=== PATIENT | male | born 2000 | race Caucasian/White ===

== ENCOUNTER 2022-02-06 14:32 | Outpatient (REF) | payer MEDICAID, SELFPAY ==
--- NOTE | ~2022-02-06 | XR_ITS ---
EXAMINATION: XR HAND, RIGHT CLINICAL INFORMATION: Right wrist and hand pain. COMPARISON: None TECHNIQUE: 4 views. of the right hand. FINDINGS: Old healed fracture of the fourth metacarpal with residual deformity. No acute abnormality. No acute fracture. No dislocation. Joint spaces are normal. No focal bone lesion or abnormal periosteal reaction. No soft tissue abnormality. XR/XR hand RT min 3V IMPRESSION: Normal right hand..
== END 2022-02-06 14:33 | disposition home or self-care (01) ==
LOC: HO.XRAY 14:32
PROVIDERS: PCP General Practice; Visit Provider General Practice
DX: S62.91XS Unspecified fracture of right hand, sequela (principal); X58.XXXS Exposure to other specified factors, sequela
CPT/HCPCS: 73130

== ENCOUNTER 2022-07-02 15:02 | Emergency (ER) | payer MEDICAID, SELFPAY ==
[2022-07-02 16:25] VITALS: BP 107/48; PULSE 74; RESP 16; TEMP 36.6; O2SAT 100; BMI 22.8
--- NOTE | 2022-07-02 17:48 | ED.GENADULT ---
HPI - General Adult General Chief complaint: Wound/Laceration Stated complaint: finger infection Time Seen by Provider: 07/02/22 17:29 Source: patient Mode of arrival: ambulatory Limitations: no limitations History of Present Illness HPI narrative: Came in for evaluation of possible left index wound infection. Patient fell caught his left index finger tip did not seek medical attention came in today for increased redness at the tip of the finger. No fever or chills. Patient is a right-handed. Related Data Previous Rx's Medication Instructions Recorded doxycycline hyclate 100 mg tablet 100 mg PO BID #14 tabs 07/02/22 Allergies Allergy/AdvReac Type Severity Reaction Status Date / Time No Known Allergies Allergy Unverified 04/08/20 18:57 [No Known Allergies*] Review of Systems Review of Systems: All other systems are reviewed and are negative Constitutional: Reports as per HPI and Reports no additional constitutional complaints Eyes: Reports as per HPI and Reports no additional eye complaints Reports system reviewed and no additional complaints, except as documented Cardiovascular: Reports as per HPI and Reports no additional cardiovascular complaints Respiratory: Reports as per HPI and Reports no additional respiratory complaints Gastrointestinal: Reports as per HPI and Reports no additional gastrointestinal complaints Genitourinary: Reports no additional female genitourinary complaints Musculoskeletal: Reports no additional musculoskeletal complaints Skin/Breast: Reports system reviewed and no additional complaints, except as docu Psychiatric: Reports no additional psychiatric complaints Endocrine: Reports no additional endocrine complaints Hematologic/Lymphatic: Reports no additional hematologic/lymphatic complaints Allergic/Immunologic: Reports no additional allergic/immunologic complaints Reports system reviewed and no additional complaints, except as documented and Reports Abnormal speech present [facility] Social History Social History Advance Directives: No Advance Directives Information Provided: No Physical Exam ED Vital Signs: Vital Signs - 24 hr 07/02/22 16:25 Temperature 98 F Pulse Rate 74 Respiratory Rate 16 Blood Pressure 107/48 L Pulse Oximetry 100 Oxygen Delivery Method Room Air BMI result Body Mass Index 22.8 Vital signs have been reviewed as appeared to be correct. Blood pressure normal. Heart rate normal. Respiration rate normal. Temperature normal. Oxygen saturation normal. Appearance: Alert. Oriented X3. No acute distress. Head: Normal external exam. Normocephalic. Atraumatic. No Landis signs noted. No raccoon eyes noted Eyes: PERRLA. EOMI. Conjunctiva and sclera normal. Eyelids normal. ENT: TM's Normal. Pharynx normal. Uvula midline. Moist mucous membranes. No trismus noted. No drooling noted. No muffled voice noted. Neck: Normal inspection. Neck supple. FROM. No adenopathy. Thyroid Normal. No meningeal signs. No neck mass noted. CVS: Normal heart rate and rhythm. Heart sound normal. No murmurs noted. Pulses normal throughout. Respiratory: No respiratory distress. Painless inspiration. Breath sounds normal. No wheezes/rales/rhonchi noted. Chest nontender. No accessory muscle usage noted or decreased air movement noted. Abdomen: Soft and nontender. Bowel sounds normal in all 4 quadrants. No distention noted. No organomegaly noted. No visible injury noted. Back: No CVA tenderness. Full range of motion noted. Skin: Skin warm and dry. Normal skin color. Normal skin turgor. No rashes/lesions/lacerations noted. Extremities: No lower extremity edema. Extremities exhibit normal range of motion. Extremities nontender. Neuro: Oriented X 3. Cranial nerve exam: II-XII are grossly intact No motor deficit. No sensory deficit. Reflexes normal. Course Course Course Narrative: Infected wound on the left index finger start the patient doxycycline and caves the wound dry and clean intact. Medical Decision Making Medical Decision Making Differential Diagnoses: Differential diagnosis (Infected wound/abscess) Discharge Plan Discharge Clinical Impression: Infected wound Patient Disposition: Home, Self-Care Instructions: Wound Infection (ED) Prescriptions: New doxycycline hyclate 100 mg tablet 100 mg PO BID Qty: 14 0RF Referrals: [facility] [Primary Care Provider] -
== END 2022-07-02 18:25 | disposition home or self-care (01) ==
PROVIDERS: Emergency Provider Emergency Medicine
DX: M79.645 Pain in left finger(s) (principal); Z79.899 Other long term (current) drug therapy
CPT/HCPCS: 99282; 99283

== ENCOUNTER 2022-08-03 22:59 | Emergency (ER) | payer MEDICAID, SELFPAY ==
[2022-08-03] MEDS: diphenhydrAMINE HCL 50 MG/ML VIAL IM (23:10)
[2022-08-03] MEDS: LORazepam 2 MG/ML VIAL IM (23:10)
[2022-08-03] MEDS: Haloperidol Lactate 5 MG/ML VIAL 10 MG IM (23:10)
[2022-08-03 23:12] VITALS: PULSE 81; RESP 22; O2SAT 96
[2022-08-03 23:14] VITALS: BP 139/84; PULSE 98; RESP 16; O2SAT 97; BMI 25.5
--- NOTE | 2022-08-03 23:15 | PC.NURSE ---
PT uncooperative, agitated, verbally threatening upon arrival. PT was brought in with [employer]. Security at beside, search of PT belongings done. PT placed in 4 point restraints. 1:1 constant observation initiated. Medications given as ordered. Labs obtained and sent to the lab. +CMS, able to move all extremities, no discoloration noted. Will continue plan of care.
[2022-08-03 23:28] VITALS: BP 120/66; PULSE 77; RESP 19
[2022-08-03 23:31] LABS: MANUAL DIFF FLAG NO
[2022-08-03 23:32] LABS: Basophils Percent Auto 0.3 % (0-2); Eosinophils Absolute Auto 0.2 X10*3/uL (0.0-0.4); Eosinophils Percent Auto 2.1 % (0-4); Hematocrit 42.7 % (42.0-52.0); Hemoglobin 14.7 g/dl (14.0-18.0); Imm Gran Abs Auto 0.04 X10*3/uL (0.00-0.03); Imm Gran Pct Auto 0.4 % (0.0-0.4); Lymphocytes Percent Auto 20.2 % (20-40); Mean Corpuscular HGB Conc 34.4 g/dl (31.0-36.0); Mean Corpuscular Hemoglobin 29.5 pg (27.0-33.0); Mean Corpuscular Volume 85.6 fL (80.0-98.0); Mean Platelet Volume 10.4 fL (9.4-12.4); Monocytes Absolute Auto 0.7 X10*3/uL (0.1-1.2); Monocytes Percent Auto 6.8 % (2-11); Neutrophils Absolute Auto 6.9 x10*3/uL (2.0-8.3); Neutrophils Percent Auto 70.2 % (45-73); Platelet Count 210 X10*3/uL (160-400); Red Blood Count 4.99 X10*6/uL (4.60-5.80); Red Cell Distribution Width 12.6 % (11.0-16.0); White Blood Count 9.8 X10*3/uL (4.8-10.8)
--- NOTE | 2022-08-03 23:35 | ED.GENADULT ---
HPI - General Adult General Chief complaint: Overdose Stated complaint: combative, Substance use Time Seen by Provider: 08/03/22 22:59 History of Present Illness HPI narrative: Patient is a 21-year-old male got into a verbal altercation at P became very verbally abusive. Uncooperative. Agitated. Question ingested recreational drugs. Patient refused to answer specific question. He is not suicidal homicidal. Brought in by PD for further evaluation. Patient attempted to get out of his structure. Verbally abusive. Agitated Related Data Previous Rx's Medication Instructions Recorded doxycycline hyclate 100 mg tablet 100 mg PO BID #14 tabs 07/02/22 Allergies Allergy/AdvReac Type Severity Reaction Status Date / Time Unable to Assess Allergy Unverified 08/03/22 22:59 Review of Systems Review of Systems: Patient refused to answer specific review system [facility] Social History Social History Advance Directives: No Advance Directives Information Provided: Yes Physical Exam ED Vital Signs: Vital Signs - 24 hr 08/03/22 23:12 08/03/22 23:41 08/03/22 23:14 Temperature Pulse Rate 81 95 98 Respiratory Rate 22 H 19 16 Blood Pressure 128/62 139/84 Pulse Oximetry 96 97 Oxygen Delivery Method Room Air Room Air 08/03/22 23:28 08/03/22 23:56 08/04/22 00:10 Temperature Pulse Rate 77 71 60 Respiratory Rate 19 20 20 Blood Pressure 120/66 121/68 130/46 L Pulse Oximetry Oxygen Delivery Method 08/04/22 00:25 08/04/22 04:00 08/04/22 05:38 Temperature Pulse Rate 90 58 58 Respiratory Rate 20 16 14 Blood Pressure 137/72 115/79 Pulse Oximetry 100 97 Oxygen Delivery Method Room Air Room Air 08/04/22 06:24 Temperature 97.8 F Pulse Rate 83 Respiratory Rate 16 Blood Pressure 134/75 Pulse Oximetry 98 Oxygen Delivery Method Room Air BMI result Body Mass Index 25.5 Appearance: Alert. Extremely agitated moving from side to side Eyes: Pupils equal, round and reactive to light. ENT: Pharynx normal. Neck: Normal inspection. Neck supple. No lymph nodes noted. No crepitus CVS: Normal heart rate and rhythm. Pulses normal. Normal S1 and S2 Respiratory: No respiratory distress. Breath sounds normal. No Wheezing. No rales Abdomen: Soft and nontender. No rigidity. No distention. good BS x4 Skin: Skin warm and dry. Normal skin color. Normal skin turgor. Extremities: No lower extremity edema. Neurovascular intact to all extremities. No Lacerations. No Rash Neuro: No motor deficit. No sensory deficit. Moving all extermities. No slurred speech. Grossly moving all extremities cranial nerves grossly intact Medications Administered Discontinued Medications Generic Name Dose Route Start Last Admin Trade Name Temitope PRN Reason Stop Dose Admin Diphenhydramine HCl 50 mg 08/04/22 00:07 08/03/22 23:10 Diphenhydramine Hcl 50 Mg/Ml Vial IM 08/04/22 00:08 50 mg ONCE ONE Administration Haloperidol Lactate 10 mg 08/04/22 00:07 08/03/22 23:10 Haloperidol Lactate 5 Mg/Ml Vial IM 08/04/22 00:08 10 mg ONCE ONE Administration Lorazepam 2 mg 08/04/22 00:07 08/03/22 23:10 Lorazepam 2 Mg/Ml Vial IM 08/04/22 00:08 2 mg ONCE ONE Administration Medical Decision Making Differential Diagnosis Extremely agitated. Risk of harm to self. Patient denies any suicidal homicidal ideation. Requiring multiple security officers along with PD to escort him into his bed. Will go ahead and give patient Ativan and Haldol for sedation. In addition to 50 of Benadryl. Will monitor carefully. Patient is in no distress. Patient's labs are unremarkable. Observe in the emergency department. Patient restrained removed. Patient was sleeping. 06:30 Patient is now awake alert. Patient wants to go home. Denies being suicidal homicidal. Admits to using recreational drugs. Patient being discharged. Told to stop using recreational drugs. Patient stormed out of the ER before the discharge paperwork can be given to. Admission/Observation Consideration of admission/observation: Escalation of care including admission/observation considered Consult Healthcare Provider Management of the patient was discussed with: Behavioral Health Provider Lab Data [facility] Lab Attestation statement: I reviewed the patient's lab results. 08/03/22 23:23 08/03/22 23:23 Labs: Lab Results 08/03/22 08/03/22 08/03/22 Range/Units 23:23 23:23 23:23 WBC 9.8 (4.8-10.8) X10*3/uL RBC 4.99 (4.60-5.80) X10*6/uL Hgb 14.7 (14.0-18.0) g/dl Hct 42.7 (42.0-52.0) % MCV 85.6 (80.0-98.0) fL MCH 29.5 (27.0-33.0) pg MCHC 34.4 (31.0-36.0) g/dl RDW 12.6 (11.0-16.0) % Plt Count 210 (160-400) X10*3/uL MPV 10.4 (9.4-12.4) fL Immature Gran % (Auto) 0.4 (0.0-0.4) % Neut % (Auto) 70.2 (45-73) % Lymph % (Auto) 20.2 (20-40) % Delta % (Auto) 6.8 (2-11) % Eos % (Auto) 2.1 (0-4) % Baso % (Auto) 0.3 (0-2) % Lymph # (Auto) 2.0 (1.2-4.9) X10*3/uL Delta # (Auto) 0.7 (0.1-1.2) X10*3/uL Eos # (Auto) 0.2 (0.0-0.4) X10*3/uL Baso # (Auto) 0.0 (0.0-0.2) X10*3/uL Abs Immat Gran (auto) 0.04 H (0.00-0.03) X10*3/uL Absolute Neuts (auto) 6.9 (2.0-8.3) x10*3/uL Absolute Nucleated RBC 0.000 (0.0-0.012) X10*3/uL Nucleated RBC % (auto) 0.0 (0.0-0.2) /100WBC Sodium 138 (135-145) mmol/L Potassium 3.4 (3.3-5.1) mmol/L Chloride 105 (96-108) mmol/L Carbon Dioxide 22 (22-29) mmol/L Anion Gap 14 (12-20) BUN 9 (9-16) mg/dL Creatinine 1.00 (0.5-1.4) mg/dL Estim Creat Clear Calc 105.4 Estimated GFR > 60 Random Glucose 136 H (60-115) mg/dL Calcium 9.2 (8.4-10.2) mg/dL Magnesium 2.1 (1.6-2.6) mg/dL Total Bilirubin 0.7 (0.0-1.0) mg/dL AST 21 (5-37) U/L ALT 16 (0-40) U/L Alkaline Phosphatase 53 (39-117) U/L Total Protein 6.7 (6.5-8.0) g/dL Albumin 4.4 (3.5-5.0) g/dL Salicylates < 5.0 L (15-30) mg/dL Acetaminophen < 17 (<30) mcg/mL Ethyl Alcohol mg/dL COVID-19 (ROBIN) Negative (Negative) COVID-19 Clin Com See Note 08/03/22 Range/Units 23:23 WBC (4.8-10.8) X10*3/uL RBC (4.60-5.80) X10*6/uL Hgb (14.0-18.0) g/dl Hct (42.0-52.0) % MCV (80.0-98.0) fL MCH (27.0-33.0) pg MCHC (31.0-36.0) g/dl RDW (11.0-16.0) % Plt Count (160-400) X10*3/uL MPV (9.4-12.4) fL Immature Gran % (Auto) (0.0-0.4) % Neut % (Auto) (45-73) % Lymph % (Auto) (20-40) % Delta % (Auto) (2-11) % Eos % (Auto) (0-4) % Baso % (Auto) (0-2) % Lymph # (Auto) (1.2-4.9) X10*3/uL Delta # (Auto) (0.1-1.2) X10*3/uL Eos # (Auto) (0.0-0.4) X10*3/uL Baso # (Auto) (0.0-0.2) X10*3/uL Abs Immat Gran (auto) (0.00-0.03) X10*3/uL Absolute Neuts (auto) (2.0-8.3) x10*3/uL Absolute Nucleated RBC (0.0-0.012) X10*3/uL Nucleated RBC % (auto) (0.0-0.2) /100WBC Sodium (135-145) mmol/L Potassium (3.3-5.1) mmol/L Chloride (96-108) mmol/L Carbon Dioxide (22-29) mmol/L Anion Gap (12-20) BUN (9-16) mg/dL Creatinine (0.5-1.4) mg/dL Estim Creat Clear Calc Estimated GFR Random Glucose (60-115) mg/dL Calcium (8.4-10.2) mg/dL Magnesium (1.6-2.6) mg/dL Total Bilirubin (0.0-1.0) mg/dL AST (5-37) U/L ALT (0-40) U/L Alkaline Phosphatase (39-117) U/L Total Protein (6.5-8.0) g/dL Albumin (3.5-5.0) g/dL Salicylates (15-30) mg/dL Acetaminophen (<30) mcg/mL Ethyl Alcohol < 10 mg/dL COVID-19 (ROBIN) (Negative) COVID-19 Clin Com Critical Care Time Critical Care Time Critical Care Time: Yes Total Critical Care Time: 35 Attestation: I have personally provided 40 minutes of critical care time exclusive of time spent on separately billable procedures. Time includes review of lab data, radiology results, discussion with consultants, and monitoring for potential decompensation. Interventions were performed as documented above Discharge Plan Discharge Clinical Impression: Drug overdose Patient Disposition: Home, Self-Care Additional Instructions: Using drugs can kill you. You got extremely agitated today. Please go to detox. Prescriptions: No Action doxycycline hyclate 100 mg tablet 100 mg PO BID Qty: 14 0RF Referrals: Physician,Unknown J [Primary Care Provider] - (Please stop using recreational drugs play please follow-up with your primary physician on an outpatient basis.) Interventions: [place]-Suicide Risk Severity Scale Last Done: 08/04/22 00:52
[2022-08-03 23:41] VITALS: BP 128/62; PULSE 95; RESP 19
[2022-08-03 23:42] LABS: COVID-19 Test Negative (Negative); IDNOW Serial# BCCEAD1C
[2022-08-03 23:56] VITALS: BP 121/68; PULSE 71; RESP 20
[2022-08-04 00:03] LABS: Acetaminophen LAB < 17 mcg/mL (<30); Alanine Aminotransferase 16 U/L (0-40); Albumin Level 4.4 g/dL (3.5-5.0); Alkaline Phosphatase 53 U/L (39-117); Anion Gap 14 (12-20); Aspartate Amino Transferase 21 U/L (5-37); Bilirubin Total 0.7 mg/dL (0.0-1.0); Blood Urea Nitrogen 9 mg/dL (9-16); Calcium 9.2 mg/dL (8.4-10.2); Carbon Dioxide 22 mmol/L (22-29); Chloride 105 mmol/L (96-108); Creatinine Clr Calc Pharmacy 105.4; Estimated Glomerular Filt Rate > 60; Ethanol < 10 mg/dL; Glucose Random 136 mg/dL (60-115); Magnesium 2.1 mg/dL (1.6-2.6); Potassium 3.4 mmol/L (3.3-5.1); Salicylate < 5.0 mg/dL (15-30); Sodium 138 mmol/L (135-145); Total Protein 6.7 g/dL (6.5-8.0)
[2022-08-04 00:10] VITALS: BP 130/46; PULSE 60; RESP 20
--- NOTE | 2022-08-04 00:21 | PC.NURSE ---
[facility] department asked to be notified when he is getting discharged. .
[2022-08-04 00:25] VITALS: BP 137/72; PULSE 90; RESP 20
--- NOTE | 2022-08-04 00:50 | PC.NURSE ---
Pt calm, sleeping. VSS. Discontinuation of restraints trial. + CMS, able to move all extremities, no discoloration noted.
--- NOTE | 2022-08-04 00:52 | PC.NURSE ---
PT denies SI/HI. Refusing to speak about leading events that brought him here. States being tired.
--- NOTE | 2022-08-04 02:29 | PC.NURSE ---
PT sleeping, no apparent distress. RR 18.
[2022-08-04 04:00] VITALS: PULSE 58; RESP 16; O2SAT 100
--- NOTE | 2022-08-04 04:46 | MHC.EDTECH ---
unable to collect urine at this time Pt unable to void. Ant Cole made aware
[2022-08-04 05:38] VITALS: BP 115/79; PULSE 58; RESP 14; O2SAT 97
[2022-08-04 06:24] VITALS: BP 134/75; PULSE 83; RESP 16; TEMP 36.6; O2SAT 98
--- NOTE | 2022-08-04 06:39 | PC.NURSE ---
PT awake asking for his belongings. VSS. PT left without D/C paperwork. Ambulatory.
== END 2022-08-04 06:40 | disposition home or self-care (01) ==
PROVIDERS: Physician Assistant; Emergency Provider Emergency Medicine Emergency Medical Services
DX: R45.1 Restlessness and agitation (principal); T50.901A Poisoning by unspecified drugs, medicaments and biological substances, accidental (unintentional), initial encounter; Y92.9 Unspecified place or not applicable
CPT/HCPCS: 36415; 80053; 80143; 80179; 82077; 83735; 85025; 87635; 96372; 99284; J1200; J2060

== ENCOUNTER 2022-08-04 22:07 | Emergency (ER) | payer MEDICAID, SELFPAY ==
--- NOTE | ~2022-08-04 | CT_ITS ---
EXAMINATION: CT HEAD WITHOUT CONTRAST CLINICAL INFORMATION: Altered mental status COMPARISON: None. TECHNIQUE: Contiguous axial imaging was performed from the skull base to vertex without intravenous contrast. This CT examination was performed using dose optimization techniques as appropriate, variously including the following: * Automated exposure control * Adjustment of mA and/or kV according to patient size (this includes techniques or standardized protocols for targeted exams where dose is matched to indication/reason for exam; i.e. extremities or head) Use of iterative reconstruction technique DLP: 824 mGy-cm. FINDINGS: There is no evidence of acute intracranial hemorrhage or territorial infarction. No abnormal mass effect or midline shift is seen. [place] to white matter differentiation is well preserved. No extra-axial fluid collections are identified. No hydrocephalus. No significant volume loss. There is no abnormal attenuation within the brain parenchyma. The osseous structures and soft tissues are normal. Mild mucoperiosteal thickening along the maxillary sinuses. The mastoid air cells and visualized portions of the paranasal sinuses are otherwise well aerated. CT/CT head/brain wo IV con IMPRESSION: No acute intracranial pathology.
[2022-08-04 22:16] VITALS: BP 106/56; BP 130/88; PULSE 100; PULSE 72; RESP 18; TEMP 36.4; O2SAT 96; BMI 25.5
[2022-08-04 23:04] VITALS: BP 121/56; PULSE 76; RESP 18; TEMP 36.8; O2SAT 97
--- NOTE | 2022-08-04 23:46 | ED.OVERDOSE ---
HPI - Overdose General Chief Complaint: Overdose Stated Complaint: substance use Time Seen by Provider: 08/04/22 22:51 Source: patient and EMS Mode of arrival: EMS Limitations: other (Poor historian) History of Present Illness HPI Narrative: 21-year-old male with no significant medical history presents to the emergency department via ambulance where supposedly patient was found on a couch by security, security jackson because patient was sleeping on the couch and thought he needed help. I spoke to patient patient tells me that he does deny he is here he says he has some nausea, he states he was just sleeping on a couch, he tells me what if I was going to pass out . Asked him if he used any drugs and he says do not worry about it . Patient denies suicidal and homicidal ideation. Denies visual, auditory and tactile hallucinations. No other complaints at this time he tells me he is discharged and wants to sleep. Patient poor historian and unreliable Related Data Previous Rx's Medication Instructions Recorded doxycycline hyclate 100 mg tablet 100 mg PO BID #14 tabs 07/02/22 naloxone 4 mg/actuation nasal 4 mg intranasal Q2M PRN opioid 08/05/22 spray (Narcan) overdose #2 ea Allergies Allergy/AdvReac Type Severity Reaction Status Date / Time No Known Allergies Allergy Verified 08/04/22 23:02 Review of Systems Review of Systems: Constitutional : No Weight loss, No Fever, No Chills, No Fatigue, No Malaise ENT/Mouth : No sore throat, No Rhinorrhea Eyes: No Eye Pain, No Swelling, No Redness Cardiovascular : No Chest Pain, No SOB, No Dyspnea on Exertion, No Orthopnea, No Edema, No Palpitations Respiratory : No Cough, No Sputum, No Wheezing Gastrointestinal : + Nausea, No Vomiting, No Diarrhea, No Constipation, No abdominal Pain, No Hematochezia, No Melena Genitourinary : No Dysuria, No Urinary Frequency, No Hematuria, Musculoskeletal : No joint pain, No Myalgias, No Joint Swelling Skin : No Skin Lesions, No rash Neuro : No Weakness, No Numbness, No Dizziness, No Headache Psych : No Anxiety/Panic, No Depression All other systems reviewed and are negative Yes all other systems are reviewed and are negative PMFSH Past Medical History Attestation statement: The following information was validated with the patient. Source: old records reviewed and nursing notes reviewed Social History Social History Advance Directives: No Advance Directives Information Provided: No Physical Exam Vital Signs: Vital Signs: Last Vital Signs Temp 98.3 F 08/04/22 23:04 Pulse 76 08/04/22 23:04 Resp 18 08/04/22 23:04 BP 121/56 L 08/04/22 23:04 Pulse Ox 97 08/04/22 23:04 O2 Del Method 08/04/22 23:04 BMI result Body Mass Index 25.5 vss Appearance: Alert.? Oriented X3.? No acute distress.? Head: Normocephalic, atraumatic, no step-offs or deformities Eyes: Pupils equal, round and reactive to light.? ENT: Pharynx normal.? Neck: Normal inspection.? Neck supple.? CVS: Normal heart rate and rhythm.? Pulses normal.? Respiratory: No respiratory distress.? Breath sounds normal.? Abdomen: Soft and nontender.? Skin: Skin warm and dry.? Normal skin color.? Normal skin turgor.? Extremities: No lower extremity edema.? No calf ttp. 5/5 strength to bilateral upper and lower extremities Back: No midline tenderness, no C-spine tenderness, full range of motion, no CVA tenderness bilaterally Neuro: Oriented X 3.? No motor deficit.? No sensory deficit. CN 2-12 intact Course Reevaluation(s) Reevaluation #1: Head CT with no acute findings. Patient resting comfortably with stable vitals. At this time patient will be placed into physician observation to allow more time to be evaluated by the behavioral health team for a substance use disorder evaluation. At time observation was started patient common cooperative no acute distress will continue to monitor. Time: 01:01 Medical Decision Making Medical Decision Making [facility] Narrative: [id number] 21-year-old male presents via ambulance for suspected opiate overdose. Patient poor historian and tells me he is nauseous and when I ask him questions he responds back with questions. Physical exam benign pain Suspected substance abuse unlikely metabolic derangements. Due to altered mental status and abnormal story will obtain head CT to rule out any pathologies Plan at this time is head imaging, patient does not need repeat labs as he had some 1 day ago Differential Diagnosis Differential Diagnoses: The differential diagnosis associated with the presentation includes Suspected substance abuse unlikely metabolic derangements. Admission/Observation Consideration of admission/observation: Escalation of care including admission/observation considered [place] Lab Data [facility] Lab Attestation statement: I reviewed the patient's lab results. Independent Interpretation I performed an independent interpretation of an: CT Scan Radiology Impression Discussion of test interpretation with radiology: I have reviewed the radiologist's reading. Core Measures AMI core measures followed: Yes Measure exclusions: not indicated Critical Care Time Critical Care Time Critical Care Time: No Discharge Plan Discharge Clinical Impression: Substance abuse, Nausea Patient Disposition: Still a Patient Instructions: Acute Nausea and Vomiting (ED), Polysubstance Abuse (ED) Additional Instructions: Take your medications as prescribed. If you were prescribed antibiotics today, it is important that you take your medication to their entirety, do not skip any doses, do not finish them early. Follow-up with your primary care provider this week. Return to the emergency department with new or worsening symptoms. Such as fevers, chills, chest pain, shortness of breath, nausea, vomiting, dizziness, headache, vision changes, lethargy In case of emergency call 911 Narcan has been sent to your pharmacy please pick this up this can be lifesaving. Prescriptions: New naloxone [Narcan] 4 mg/actuation spray,non-aerosol 4 mg intranasal Q2M PRN (Reason: opioid overdose) Qty: 2 0RF Rx Instructions: spray 1 dose into ONE nostril; alternate nostrils w each dose until help arrives No Action doxycycline hyclate 100 mg tablet 100 mg PO BID Qty: 14 0RF Referrals: [facility] [Primary Care Provider] - 2 days
[2022-08-05 01:59] VITALS: BP 121/64; PULSE 76; RESP 16; O2SAT 98
[2022-08-05 02:11] LABS: COVID-19 Test Negative (Negative); IDNOW Serial# 16C4AD1C
--- NOTE | 2022-08-05 02:17 | MHC.CARE ---
CARE Team attempted to meet with pt however pt sleeping and not interviewable.
--- NOTE | 2022-08-05 06:32 | PC.NURSE ---
Per EMS pt arrived intoxicated pt was sleeping [place]. Pt reports he was smoking weed and fallow asleep, and denies the usage of other drugs.
--- NOTE | 2022-08-05 06:33 | PC.NURSE ---
PT denies being SI and HI.
== END 2022-08-05 06:35 | disposition still patient (30) ==
PROVIDERS: Physician Assistant; Emergency Provider Emergency Medicine
DX: T40.1X1A Poisoning by heroin, accidental (unintentional), initial encounter (principal); T40.601A Poisoning by unspecified narcotics, accidental (unintentional), initial encounter; R11.2 Nausea with vomiting, unspecified; R51.9 Headache, unspecified; Y92.9 Unspecified place or not applicable; Z20.822 Contact with and (suspected) exposure to COVID-19; Z20.828 Contact with and (suspected) exposure to other viral communicable diseases
CPT/HCPCS: 70450; 87635; 99283; 99284

== ENCOUNTER 2022-11-14 14:39 | Emergency (ER) | payer MEDICAID, SELFPAY ==
[2022-11-14 14:48] VITALS: BP 135/86; BP 137/71; PULSE 102; PULSE 94; RESP 18; TEMP 36.9; O2SAT 97; O2SAT 99; BMI 22.8
--- NOTE | 2022-11-14 14:54 | ECG_ITS ---
Test Reason : DETOX Blood Pressure : / mmHG Vent. Rate : 084 BPM Atrial Rate : 084 BPM P-R Int : 136 ms QRS Dur : 078 ms QT Int : 368 ms P-R-T Axes : 053 026 063 degrees QTc Int : 434 ms Normal sinus rhythm with sinus arrhythmia Normal ECG No previous ECGs available Referred By: Anna Elam Electronically Signed By:Satinder Baxter
--- NOTE | 2022-11-14 14:54 | ED.GENADULT ---
HPI - General Adult General Chief complaint: ETOH/Substance Use <TERRY Gurrola - Last Filed: 11/14/22 16:20> Stated complaint: body ache <TERRY Gurrola - Last Filed: 11/14/22 16:20> Time Seen by Provider: 11/14/22 14:53 <TERRY Gurrola Last Filed: 11/14/22 16:20> Source: patient and EMS <TERRY Gurrola Last Filed: 11/14/22 16:20> Mode of arrival: EMS <TERRY Gurrola Last Filed: 11/14/22 16:20> Limitations: no limitations <TERRY Gurrola Last Filed: 11/14/22 16:20> History of Present Illness HPI narrative: Patient is a 22 year old assigned male at with a history of substance abuse presenting to the emergency department today requesting detox. Patient states that he has been using all sorts of shit and he wants to get clean. Patient denies any dizziness, lightheadedness, abdominal pain, nausea, vomiting, fever, chills, blurry vision, double vision, loss of vision, chest pain, difficulty breathing, shortness of breath, back pain, night sweats, pain with urination, increased urinary frequency, increased urinary urgency, blood in his urine or stool, syncope or a near syncopal episode, recent trauma or falls, bowel incontinence, bladder incontinence, bowel retention, bladder retention, or any other complaints at this time. <TERRY Gurrola - Last Filed: 11/14/22 16:20> Relieving factors: none <TERRY Gurrola Last Filed: 11/14/22 16:20> Exacerbating factors: none <TERRY Gurrola Last Filed: 11/14/22 16:20> Associated symptoms: denies other symptoms <TERRY Gurrola Last Filed: 11/14/22 16:20> Treatments prior to arrival: none <TERRY Gurrola Last Filed: 11/14/22 16:20> Related Data Home medications: Previous Rx's Medication Instructions Recorded doxycycline hyclate 100 mg tablet 100 mg PO BID #14 tabs 07/02/22 naloxone 4 mg/actuation nasal 4 mg intranasal Q2M PRN opioid 08/05/22 spray (Narcan) overdose #2 ea <TERRY Gurrola - Last Filed: 11/14/22 16:20> Allergies/adverse reactions: Allergies Allergy/AdvReac Type Severity Reaction Status Date / Time No Known Allergies Allergy Verified 08/04/22 23:02 <TERRY Gurrola Last Filed: 11/14/22 16:20> Review of Systems Constitutional: Constitutional: Reports no additional constitutional complaints, Denies chills, Denies fever(s) and Denies night sweats <TERRY Gurrola - Last Filed: 11/14/22 16:20> Eyes: Eyes: Reports no additional eye complaints, Denies blurry vision, Denies change in vision, Denies diplopia, Denies eye discharge, Denies loss of vision and Denies eye pain <TERRY Gurrola Last Filed: 11/14/22 16:20> ENT: Denies dizziness <TERRY Gurrola Last Filed: 11/14/22 16:20> Cardiovascular: Cardiovascular: Reports no additional cardiovascular complaints, Denies chest pain, Denies lightheadedness, Denies Loss of Consciousness and Denies dyspnea <TERRY Gurrola - Last Filed: 11/14/22 16:20> Respiratory: Respiratory: Reports no additional respiratory complaints and Denies dyspnea <TERRY Gurrola - Last Filed: 11/14/22 16:20> Gastrointestinal: Gastrointestinal: Reports no additional gastrointestinal complaints, Denies abdominal pain, Denies melena, Denies hematochezia, Denies change in bowel habits and Denies change in stool character <TERRY Gurrola Last Filed: 11/14/22 16:20> Genitourinary: Genitourinary: Reports no additional male genitourinary complaints, Denies hematuria, Denies oliguria, Denies difficulty urinating, Denies dysuria, Denies urinary frequency, Denies urinary hesitancy, Denies urinary incontinence and Denies urinary urgency <TERRY Gurrola Last Filed: 11/14/22 16:20> Musculoskeletal: Musculoskeletal: Reports no additional musculoskeletal complaints, Denies numbness and Denies tingling <TERRY Gurrola Last Filed: 11/14/22 16:20> Neurologic: Denies dizziness, Denies loss of vision, Denies numbness and Denies tingling <TERRY Gurrola - Last Filed: 11/14/22 16:20> Psychiatric: Psychiatric: Reports no additional psychiatric complaints <TERRY Gurrola - Last Filed: 11/14/22 16:20> Endocrine: Endocrine: Reports no additional endocrine complaints <TERRY Gurrola - Last Filed: 11/14/22 16:20> Hematologic/Lymphatic: Hematologic/Lymphatic: Reports no additional hematologic/lymphatic complaints <TERRY Gurrola - Last Filed: 11/14/22 16:20> Allergic/Immunologic: Allergic/Immunologic: Reports no additional allergic/immunologic complaints <TERRY Gurrola - Last Filed: 11/14/22 16:20> [facility] Past Medical History Attestation statement: The following information was validated with the patient. <TERRY Gurrola - Last Filed: 11/14/22 16:20> Source: old records reviewed and nursing notes reviewed <TERRY Gurrola - Last Filed: 11/14/22 16:20> Social History Social History: Social History Alcohol intake: current Alcohol intake frequency: a few times a week Smoked in Last 30 Days: Yes Use of substances other than those prescribed or required for medical reasons: Yes Substance Use Type: [employer] Drugs, Crack/Cocaine, Heroin and Marijuana Advance Directives: No Advance Directives Information Provided: No <TERRY Gurrola - Last Filed: 11/14/22 16:20> Physical Exam ED Vital Signs: Vital Signs - 24 hr 11/14/22 14:48 Temperature 98.4 F Pulse Rate 94 Respiratory Rate 18 Blood Pressure 137/71 Pulse Oximetry 97 Oxygen Delivery Method Room Air BMI result Body Mass Index 22.8 <TERRY Gurrola - Last Filed: 11/14/22 16:20> Vital Signs - 24 hr 11/14/22 14:48 Temperature 98.4 F Pulse Rate 94 Respiratory Rate 18 Blood Pressure 137/71 Pulse Oximetry 97 Oxygen Delivery Method Room Air BMI result Body Mass Index 22.8 <TERRY Martinez - Last Filed: 11/14/22 18:09> Const General: cooperative, no acute distress, alert and awake <Annapaulina [place] - Last Filed: 11/14/22 16:20> Nutritional Appearance: well nourished <Anna [place] - Last Filed: 11/14/22 16:20> Orientation/consciousness: patient oriented x3 <Anna [place] - Last Filed: 11/14/22 16:20> Limitations: no limitations <Annapaulina [place] - Last Filed: 11/14/22 16:20> HENMT Head: Yes normal to inspection and Yes atraumatic <Anna [place] - Last Filed: 11/14/22 16:20> Ears: hearing grossly normal bilaterally and external ears normal <Anna [place] - Last Filed: 11/14/22 16:20> General nose exam: Normal external nose present, no nasal discharge noted and no epistaxis <Anna [place] - Last Filed: 11/14/22 16:20> Face and sinus: Yes normal facial exam, No abrasion and No laceration <Anna [place] - Last Filed: 11/14/22 16:20> Mouth: Normal oral and palatal mucosa present, no drooling and no muffled voice <Anna [place] - Last Filed: 11/14/22 16:20> Eyes General: appearance normal, both eyes and all related structures <Anna [place] - Last Filed: 11/14/22 16:20> Periorbital: periorbital findings normal <Anna Marialuisa [place] - Last Filed: 11/14/22 16:20> Eyelids: Yes eyelids normal <Anna [place] - Last Filed: 11/14/22 16:20> Conjunctivae: conjunctivae normal <Annapaulina [place] - Last Filed: 11/14/22 16:20> Pupils: Equal, round and reactive pupils present <Anna Marialuisa [place] - Last Filed: 11/14/22 16:20> EOM: EOMs intact bilaterally <Anna Marialuisa [place] - Last Filed: 11/14/22 16:20> Neck Neck: Yes normal visual inspection, Yes full ROM and Yes no lymphadenopathy <Anna Elam [place] - Last Filed: 11/14/22 16:20> Chest Chest palpation & inspection: normal inspection of the chest <Anna Elam [facility] Last Filed: 11/14/22 16:20> Resp Effort & Inspection: normal respiratory effort and able to speak in complete sentences <Anna Elam [facility] Last Filed: 11/14/22 16:20> Auscultation: clear to auscultation bilaterally <Anna Elam [place] - Last Filed: 11/14/22 16:20> Cardio Rate: regular rate <Anna Elam [facility] Last Filed: 11/14/22 16:20> Rhythm: regular rhythm <Anna Elam [facility] Last Filed: 11/14/22 16:20> GI Inspection: Yes normal to inspection <Anna Elam [facility] Last Filed: 11/14/22 16:20> Palpation (GI): Soft to palpation, not firm, nontender, no guarding and not rigid <Anna Elam [facility] Last Filed: 11/14/22 16:20> Neuro General: patient oriented x3 and moves all extremities <Anna Elam [facility] Last Filed: 11/14/22 16:20> Cranial nerves: Yes Equal, round and reactive pupils present <Anna Elam [facility] Last Filed: 11/14/22 16:20> Cognition (Neuro): normal cognition <Anna Elam [facility] Last Filed: 11/14/22 16:20> Motor exam (neuro): 5/5 motor strength present throughout <Anna Elam [facility] Last Filed: 11/14/22 16:20> Sensory Exam: Normal double simultaneous stimulation for sensation <Anna Elam [facility] Last Filed: 11/14/22 16:20> Coordination: [id number] test normal <Anna Elam [facility] Last Filed: 11/14/22 16:20> Extrem General: Yes normal to inspection, Yes full ROM and Yes capillary refill normal <Anna Elam [facility] Last Filed: 11/14/22 16:20> Psych Appearance: grossly normal <Anna Elam [facility] Last Filed: 11/14/22 16:20> Mental Status: mental status grossly normal <Anna Elam [place] - Last Filed: 11/14/22 16:20> Affect: normal affect <TERRY Gurrola - Last Filed: 11/14/22 16:20> Attitude: cooperative <TERRY Gurrola - Last Filed: 11/14/22 16:20> Thought process: Normal thought process present <TERRY Gurrola Last Filed: 11/14/22 16:20> Thought content: Normal thought content present <TERRY Gurrola Last Filed: 11/14/22 16:20> Insight: Good insight present (Psych) <TERRY Gurrola - Last Filed: 11/14/22 16:20> Course Reevaluation(s) Reevaluation #1: Patient was evaluated by the swimming coach or instructor, patient will find outpatient detox and was given resources. Denies SI and HI. Comfortable going home. Educated patient on diagnosis and treatment plan, answered all question, patient verbalizes understanding. At this time patient will be discharged home, advised to return with new or worsening symptoms. Educated on worrisome signs and symptoms and when to return. At this time I feel comfortable discharge home. <TERRY Martinez - Last Filed: 11/14/22 18:09> Time: 18:09 <TERRY Martinez - Last Filed: 11/14/22 18:09> Medications Administered Discontinued Medications Generic Name Dose Route Start Last Admin Trade Name Freq PRN Reason Stop Dose Admin Sodium Chloride 1,000 mls @ 999 mls/hr 11/14/22 15:00 11/14/22 16:26 Ns IV 11/14/22 16:00 Infused .Q1H1M ERLINDA Infusion Lorazepam 2 mg 11/14/22 14:54 11/14/22 15:28 Lorazepam 2 Mg/Ml Vial IVPUSH 11/14/22 14:55 Not Given ONCE ONE Lorazepam 1 mg 11/14/22 16:53 11/14/22 17:20 Lorazepam 1 Mg Tablet PO 11/14/22 16:54 1 mg ONCE ONE Administration <TERRY Gurrola Last Filed: 11/14/22 16:20> Medications Administered Discontinued Medications Generic Name Dose Route Start Last Admin Trade Name Freq PRN Reason Stop Dose Admin Sodium Chloride 1,000 mls @ 999 mls/hr 11/14/22 15:00 11/14/22 16:26 Ns IV 11/14/22 16:00 Infused .Q1H1M ERLINDA Infusion Lorazepam 2 mg 11/14/22 14:54 11/14/22 15:28 Lorazepam 2 Mg/Ml Vial IVPUSH 11/14/22 14:55 Not Given ONCE ONE Lorazepam 1 mg 11/14/22 16:53 11/14/22 17:20 Lorazepam 1 Mg Tablet PO 11/14/22 16:54 1 mg ONCE ONE Administration <TERRY Martinez - Last Filed: 11/14/22 18:09> Medical Decision Making Medical Decision Making [facility] Narrative: Patient is a 22 year old assigned male at with a history of substance use presenting to the emergency department today requesting detox. Patient's physical exam was unremarkable. Patient's blood work was unremarkable. I explained my physical exam findings as well as all test results to the patient. I answered all questions asked by the patient. Patient received IV fluids. Patient is currently awaiting recovery team evaluation for possible detox placement. <TERRY Gurrola - Last Filed: 11/14/22 16:20> Differential Diagnosis Differential Diagnoses: The differential diagnosis associated with the presentation includes <TERRY Gurrola - Last Filed: 11/14/22 16:20> substance use/abuse <TERRY Gurrola - Last Filed: 11/14/22 16:20> Lab Data [facility] Lab Attestation statement: I reviewed the patient's lab results. <TERRY Gurrola - Last Filed: 11/14/22 16:20> Result Diagrams: 11/14/22 15:12 11/14/22 15:12 <TERRY Gurrola - Last Filed: 11/14/22 16:20> Labs: Lab Results 11/14/22 11/14/22 11/14/22 Range/Units 15:12 15:12 16:23 WBC 8.2 (4.8-10.8) X10*3/uL RBC 5.17 (4.60-5.80) X10*6/uL Hgb 15.2 (14.0-18.0) g/dl Hct 45.0 (42.0-52.0) % MCV 87.0 (80.0-98.0) fL MCH 29.4 (27.0-33.0) pg MCHC 33.8 (31.0-36.0) g/dl RDW 12.8 (11.0-16.0) % Plt Count 267 D (160-400) X10*3/uL MPV 10.2 (9.4-12.4) fL Immature Gran % (Auto) 0.4 (0.0-0.4) % Neut % (Auto) 72.3 (45-73) % Lymph % (Auto) 18.3 L (20-40) % [place] % (Auto) 6.8 (2-11) % Eos % (Auto) 1.7 (0-4) % Baso % (Auto) 0.5 (0-2) % Lymph # (Auto) 1.5 (1.2-4.9) X10*3/uL [place] # (Auto) 0.6 (0.1-1.2) X10*3/uL Eos # (Auto) 0.1 (0.0-0.4) X10*3/uL Baso # (Auto) 0.0 (0.0-0.2) X10*3/uL Abs Immat Gran (auto) 0.03 (0.00-0.03) X10*3/uL Absolute Neuts (auto) 6.0 (2.0-8.3) x10*3/uL Absolute Nucleated RBC 0.000 (0.0-0.012) X10*3/uL Nucleated RBC % (auto) 0.0 (0.0-0.2) /100WBC Sodium 141 (135-145) mmol/L Potassium 4.4 D (3.3-5.1) mmol/L Chloride 107 (96-108) mmol/L Carbon Dioxide 25 (22-29) mmol/L Anion Gap 13 (12-20) BUN 11 (9-16) mg/dL Creatinine 0.79 (0.5-1.4) mg/dL Estim Creat Clear Calc 141.1 Estimated GFR > 60 Random Glucose 75 (60-115) mg/dL Calcium 9.5 (8.4-10.2) mg/dL Magnesium 2.1 (1.6-2.6) mg/dL Total Bilirubin 0.5 (0.0-1.0) mg/dL AST 23 (5-37) U/L ALT 37 (0-40) U/L Alkaline Phosphatase 66 (39-117) U/L Total Protein 7.1 (6.5-8.0) g/dL Albumin 4.4 (3.5-5.0) g/dL Urine Color Yellow Urine Appearance Clear Urine pH 7.5 (5.0-9.0) Ur Specific [place] 1.010 (1.005-1.025) Urine Protein Negative (Neg-Trace) mg/dL Urine Glucose (UA) Negative (Negative) mg/dL Urine Ketones 15 (Negative) mg/dL Urine Blood Negative (Negative) Urine Nitrite Negative (Negative) Ur Leukocyte Esterase Negative (Negative) Salicylates < 5.0 L (15-30) mg/dL Urine Opiates Screen (Not Detect) Urine Fentanyl Screen (Not Detect) Acetaminophen < 17 (<30) mcg/mL Ur Barbiturates Screen (Not Detect) Ur Phencyclidine Scrn (Not Detect) Ur Amphetamines Screen (Not Detect) U Benzodiazepines Scrn (Not Detect) Urine Cocaine Screen (Not Detect) U Marijuana (THC) Screen (Not Detect) Ethyl Alcohol < 10 mg/dL 11/14/22 Range/Units 16:23 WBC (4.8-10.8) X10*3/uL RBC (4.60-5.80) X10*6/uL Hgb (14.0-18.0) g/dl Hct (42.0-52.0) % MCV (80.0-98.0) fL MCH (27.0-33.0) pg MCHC (31.0-36.0) g/dl RDW (11.0-16.0) % Plt Count (160-400) X10*3/uL MPV (9.4-12.4) fL Immature Gran % (Auto) (0.0-0.4) % Neut % (Auto) (45-73) % Lymph % (Auto) (20-40) % [place] % (Auto) (2-11) % Eos % (Auto) (0-4) % Baso % (Auto) (0-2) % Lymph # (Auto) (1.2-4.9) X10*3/uL [place] # (Auto) (0.1-1.2) X10*3/uL Eos # (Auto) (0.0-0.4) X10*3/uL Baso # (Auto) (0.0-0.2) X10*3/uL Abs Immat Gran (auto) (0.00-0.03) X10*3/uL Absolute Neuts (auto) (2.0-8.3) x10*3/uL Absolute Nucleated RBC (0.0-0.012) X10*3/uL Nucleated RBC % (auto) (0.0-0.2) /100WBC Sodium (135-145) mmol/L Potassium (3.3-5.1) mmol/L Chloride (96-108) mmol/L Carbon Dioxide (22-29) mmol/L Anion Gap (12-20) BUN (9-16) mg/dL Creatinine (0.5-1.4) mg/dL Estim Creat Clear Calc Estimated GFR Random Glucose (60-115) mg/dL Calcium (8.4-10.2) mg/dL Magnesium (1.6-2.6) mg/dL Total Bilirubin (0.0-1.0) mg/dL AST (5-37) U/L ALT (0-40) U/L Alkaline Phosphatase (39-117) U/L Total Protein (6.5-8.0) g/dL Albumin (3.5-5.0) g/dL Urine Color Urine Appearance Urine pH (5.0-9.0) Ur Specific [place] (1.005-1.025) Urine Protein (Neg-Trace) mg/dL Urine Glucose (UA) (Negative) mg/dL Urine Ketones (Negative) mg/dL Urine Blood (Negative) Urine Nitrite (Negative) Ur Leukocyte Esterase (Negative) Salicylates (15-30) mg/dL Urine Opiates Screen Not Detected (Not Detect) Urine Fentanyl Screen POSITIVE H (Not Detect) Acetaminophen (<30) mcg/mL Ur Barbiturates Screen Not Detected (Not Detect) Ur Phencyclidine Scrn POSITIVE H (Not Detect) Ur Amphetamines Screen Not Detected (Not Detect) U Benzodiazepines Scrn Not Detected (Not Detect) Urine Cocaine Screen POSITIVE H (Not Detect) U Marijuana (THC) Screen POSITIVE H (Not Detect) Ethyl Alcohol mg/dL <TERRY Gurrola Last Filed: 11/14/22 16:20> Lab Results 11/14/22 11/14/22 11/14/22 Range/Units 15:12 15:12 16:23 WBC 8.2 (4.8-10.8) X10*3/uL RBC 5.17 (4.60-5.80) X10*6/uL Hgb 15.2 (14.0-18.0) g/dl Hct 45.0 (42.0-52.0) % MCV 87.0 (80.0-98.0) fL MCH 29.4 (27.0-33.0) pg MCHC 33.8 (31.0-36.0) g/dl RDW 12.8 (11.0-16.0) % Plt Count 267 D (160-400) X10*3/uL MPV 10.2 (9.4-12.4) fL Immature Gran % (Auto) 0.4 (0.0-0.4) % Neut % (Auto) 72.3 (45-73) % Lymph % (Auto) 18.3 L (20-40) % [place] % (Auto) 6.8 (2-11) % Eos % (Auto) 1.7 (0-4) % Baso % (Auto) 0.5 (0-2) % Lymph # (Auto) 1.5 (1.2-4.9) X10*3/uL [place] # (Auto) 0.6 (0.1-1.2) X10*3/uL Eos # (Auto) 0.1 (0.0-0.4) X10*3/uL Baso # (Auto) 0.0 (0.0-0.2) X10*3/uL Abs Immat Gran (auto) 0.03 (0.00-0.03) X10*3/uL Absolute Neuts (auto) 6.0 (2.0-8.3) x10*3/uL Absolute Nucleated RBC 0.000 (0.0-0.012) X10*3/uL Nucleated RBC % (auto) 0.0 (0.0-0.2) /100WBC Sodium 141 (135-145) mmol/L Potassium 4.4 D (3.3-5.1) mmol/L Chloride 107 (96-108) mmol/L Carbon Dioxide 25 (22-29) mmol/L Anion Gap 13 (12-20) BUN 11 (9-16) mg/dL Creatinine 0.79 (0.5-1.4) mg/dL Estim Creat Clear Calc 141.1 Estimated GFR > 60 Random Glucose 75 (60-115) mg/dL Calcium 9.5 (8.4-10.2) mg/dL Magnesium 2.1 (1.6-2.6) mg/dL Total Bilirubin 0.5 (0.0-1.0) mg/dL AST 23 (5-37) U/L ALT 37 (0-40) U/L Alkaline Phosphatase 66 (39-117) U/L Total Protein 7.1 (6.5-8.0) g/dL Albumin 4.4 (3.5-5.0) g/dL Urine Color Yellow Urine Appearance Clear Urine pH 7.5 (5.0-9.0) Ur Specific [place] 1.010 (1.005-1.025) Urine Protein Negative (Neg-Trace) mg/dL Urine Glucose (UA) Negative (Negative) mg/dL Urine Ketones 15 (Negative) mg/dL Urine Blood Negative (Negative) Urine Nitrite Negative (Negative) Ur Leukocyte Esterase Negative (Negative) Salicylates < 5.0 L (15-30) mg/dL Urine Opiates Screen (Not Detect) Urine Fentanyl Screen (Not Detect) Acetaminophen < 17 (<30) mcg/mL Ur Barbiturates Screen (Not Detect) Ur Phencyclidine Scrn (Not Detect) Ur Amphetamines Screen (Not Detect) U Benzodiazepines Scrn (Not Detect) Urine Cocaine Screen (Not Detect) U Marijuana (THC) Screen (Not Detect) Ethyl Alcohol < 10 mg/dL 11/14/22 Range/Units 16:23 WBC (4.8-10.8) X10*3/uL RBC (4.60-5.80) X10*6/uL Hgb (14.0-18.0) g/dl Hct (42.0-52.0) % MCV (80.0-98.0) fL MCH (27.0-33.0) pg MCHC (31.0-36.0) g/dl RDW (11.0-16.0) % Plt Count (160-400) X10*3/uL MPV (9.4-12.4) fL Immature Gran % (Auto) (0.0-0.4) % Neut % (Auto) (45-73) % Lymph % (Auto) (20-40) % [place] % (Auto) (2-11) % Eos % (Auto) (0-4) % Baso % (Auto) (0-2) % Lymph # (Auto) (1.2-4.9) X10*3/uL [place] # (Auto) (0.1-1.2) X10*3/uL Eos # (Auto) (0.0-0.4) X10*3/uL Baso # (Auto) (0.0-0.2) X10*3/uL Abs Immat Gran (auto) (0.00-0.03) X10*3/uL Absolute Neuts (auto) (2.0-8.3) x10*3/uL Absolute Nucleated RBC (0.0-0.012) X10*3/uL Nucleated RBC % (auto) (0.0-0.2) /100WBC Sodium (135-145) mmol/L Potassium (3.3-5.1) mmol/L Chloride (96-108) mmol/L Carbon Dioxide (22-29) mmol/L Anion Gap (12-20) BUN (9-16) mg/dL Creatinine (0.5-1.4) mg/dL Estim Creat Clear Calc Estimated GFR Random Glucose (60-115) mg/dL Calcium (8.4-10.2) mg/dL Magnesium (1.6-2.6) mg/dL Total Bilirubin (0.0-1.0) mg/dL AST (5-37) U/L ALT (0-40) U/L Alkaline Phosphatase (39-117) U/L Total Protein (6.5-8.0) g/dL Albumin (3.5-5.0) g/dL Urine Color Urine Appearance Urine pH (5.0-9.0) Ur Specific [place] (1.005-1.025) Urine Protein (Neg-Trace) mg/dL Urine Glucose (UA) (Negative) mg/dL Urine Ketones (Negative) mg/dL Urine Blood (Negative) Urine Nitrite (Negative) Ur Leukocyte Esterase (Negative) Salicylates (15-30) mg/dL Urine Opiates Screen Not Detected (Not Detect) Urine Fentanyl Screen POSITIVE H (Not Detect) Acetaminophen (<30) mcg/mL Ur Barbiturates Screen Not Detected (Not Detect) Ur Phencyclidine Scrn POSITIVE H (Not Detect) Ur Amphetamines Screen Not Detected (Not Detect) U Benzodiazepines Scrn Not Detected (Not Detect) Urine Cocaine Screen POSITIVE H (Not Detect) U Marijuana (THC) Screen POSITIVE H (Not Detect) Ethyl Alcohol mg/dL <TERRY Martinez - Last Filed: 11/14/22 18:09> Independent Historian Clinical information obtained from an independent historian. History obtained from or confirmed by: EMS <TERRY Gurrola Last Filed: 11/14/22 16:20> Discharge Plan Discharge Clinical Impression: Substance use <TERRY Gurrola Last Filed: 11/14/22 16:20> Patient Disposition: Home, Self-Care <TERRY Gurrola Last Filed: 11/14/22 16:20> Instructions: Polysubstance Abuse (ED) <TERRY Gurrola Last Filed: 11/14/22 16:20> Additional Instructions: Take your medications as prescribed. If you were prescribed antibiotics today, it is important that you take your medication to their entirety, do not skip any doses, do not finish them early. Follow-up with your primary care provider this week. Return to the emergency department with new or worsening symptoms. Such as fevers, chills, chest pain, shortness of breath, nausea, vomiting, dizziness, headache, vision changes, lethargy In case of emergency call 911 <TERRY Gurrola Last Filed: 11/14/22 16:20> Prescriptions: No Action doxycycline hyclate 100 mg tablet 100 mg PO BID Qty: 14 0RF naloxone [Narcan] 4 mg/actuation spray,non-aerosol 4 mg intranasal Q2M PRN (Reason: opioid overdose) Qty: 2 0RF Rx Instructions: spray 1 dose into ONE nostril; alternate nostrils w each dose until help arrives <TERRY Gurrola Last Filed: 11/14/22 16:20> Referrals: Physician,Unknown J [Primary Care Provider] - 2 days <TERRY Gurrola - Last Filed: 11/14/22 16:20> Stand Alone Forms: Work/School Release <TERRY Gurrola - Last Filed: 11/14/22 16:20>
[2022-11-14] MEDS: 0.9 % Sodium Chloride 1,000 ML 999 ML IV (15:12)
[2022-11-14 15:24] LABS: MANUAL DIFF FLAG NO
[2022-11-14 15:25] LABS: Basophils Percent Auto 0.5 % (0-2); Eosinophils Absolute Auto 0.1 X10*3/uL (0.0-0.4); Eosinophils Percent Auto 1.7 % (0-4); Hemoglobin 15.2 g/dl (14.0-18.0); Imm Gran Abs Auto 0.03 X10*3/uL (0.00-0.03); Imm Gran Pct Auto 0.4 % (0.0-0.4); Lymphocytes Absolute Auto 1.5 X10*3/uL (1.2-4.9); Lymphocytes Percent Auto 18.3 % (20-40); Mean Corpuscular HGB Conc 33.8 g/dl (31.0-36.0); Mean Corpuscular Hemoglobin 29.4 pg (27.0-33.0); Mean Platelet Volume 10.2 fL (9.4-12.4); Monocytes Absolute Auto 0.6 X10*3/uL (0.1-1.2); Monocytes Percent Auto 6.8 % (2-11); Neutrophils Percent Auto 72.3 % (45-73); Platelet Count 267 X10*3/uL (160-400); Red Blood Count 5.17 X10*6/uL (4.60-5.80); Red Cell Distribution Width 12.8 % (11.0-16.0); White Blood Count 8.2 X10*3/uL (4.8-10.8)
[2022-11-14 16:04] LABS: Acetaminophen LAB < 17 mcg/mL (<30); Alanine Aminotransferase 37 U/L (0-40); Albumin Level 4.4 g/dL (3.5-5.0); Alkaline Phosphatase 66 U/L (39-117); Anion Gap 13 (12-20); Aspartate Amino Transferase 23 U/L (5-37); Bilirubin Total 0.5 mg/dL (0.0-1.0); Blood Urea Nitrogen 11 mg/dL (9-16); Calcium 9.5 mg/dL (8.4-10.2); Carbon Dioxide 25 mmol/L (22-29); Chloride 107 mmol/L (96-108); Creatinine Clr Calc Pharmacy 141.1; Estimated Glomerular Filt Rate > 60; Ethanol < 10 mg/dL; Glucose Random 75 mg/dL (60-115); Magnesium 2.1 mg/dL (1.6-2.6); Potassium 4.4 mmol/L (3.3-5.1); Salicylate < 5.0 mg/dL (15-30); Sodium 141 mmol/L (135-145); Total Protein 7.1 g/dL (6.5-8.0)
[2022-11-14 16:29] LABS: Appearance Urine Clear; Color Urine Yellow; Glucose Urine UA Negative (Negative); Leukocyte Esterase Urine Negative (Negative); Nitrite Urine Negative (Negative); PH 7.5 (5.0-9.0); Urine Blood Negative (Negative); Urine Ketones 15 mg/dL (Negative); Urine Protein Negative (Neg-Trace)
[2022-11-14 16:40] LABS: Amphetamine Screen Urine Not Detected (Not Detect); Barbiturates, Urine Not Detected (Not Detect); Benzodiazepines Screen Urine Not Detected (Not Detect); Cannabinoid Screen Urine POSITIVE (Not Detect); Cocaine Screen Urine POSITIVE (Not Detect); Fentanyl, urine POSITIVE (Not Detect); Opiate Screen Urine Not Detected (Not Detect); Phencyclidine Screen Urine POSITIVE (Not Detect)
--- NOTE | 2022-11-14 17:02 | MHC.RECOVSUP ---
Met with pt in ED19 for potential ATS. Pt shares he has been using ?everything? listing PCP, THC, Crack, and opiates. Pt is unable to provide an estimate of how much he is using but has been using for the past 3 months. Pt informs he was at [facility] about 1 month ago but was kicked out for being ?too rowdy? and is interested in going to another ATS facility. Pt has no further questions or concerns at this time.
[2022-11-14] MEDS: LORazepam 1 MG TABLET PO (17:20)
--- NOTE | 2022-11-14 20:39 | MHC.RECOVSUP ---
? Reason for consult:OPI o? Current location:19H? o? Identified substance use concern:? -? Seeking ATS (detox) ? Intervention: o? ATS bed search started/completed/in process o? Community resources provided ? Plan: o? Bed search in progress to [facility] o? Follow up tomorrow? ? Additional information:LEESA met with this pt as Zaira from [facility] was calling the recovery team phone to comlpete a phone screen, but the pt wasn't able to keep his composure to complete the screen. Please follow up with this pt tomorrow for a phone screen to [facility].
[2022-11-15 02:26] VITALS: RESP 18
[2022-11-15 04:17] VITALS: BP 119/83; PULSE 103; RESP 18; TEMP 37.2; O2SAT 99
--- NOTE | 2022-11-15 04:40 | PC.NURSE ---
Patient is alert and oriented to self and place only. Patient is not able to state current date. VSS. Patient denies any pain at rest. Patient reports pain in b/l feet with ambulation/weight bearing only. CIWA assessment competed. CIWA score 3. Patient requested water, sandwich and pudding which has been provided to patient. Patient tolerated food and fluids well.
--- NOTE | 2022-11-15 05:12 | MHC.EDTECH ---
This Tech attempted to place patient on cardiac cath tech,Patient got agitated and refused to have them placed. RN at bedside and is aware. Call bunn in reach
--- NOTE | 2022-11-15 07:41 | PC.NURSE ---
assumed care of this pt at 0700. pt currently sleeping. rr even/unlabored. wctm
--- NOTE | 2022-11-15 08:33 | PC.NURSE ---
pt sitting up in stretcher, eating breakfst. plan to move pt to pod to await detox placement. pt already changed to hospital attire. ambulatory in room w steady gait, report given to pod nurse.
--- NOTE | 2022-11-15 09:26 | MHC.RECOVRN ---
Pt completed phone screen with Pamela Hernandez, pt informed intake he was recently administratively discharged from [facility] and presentation on the phone was concerning and believes pt would be disruptive on the unit. Pt reported having psychiatric dx and medications, unsure of compliance which is also a concern for MV. Spoke with CARE Team, plan for CARE Team to evaluate.
[2022-11-15] MEDS: Nicotine Polacrilex 2 MG GUM 4 MG BUCCAL ×2 (11:31→12:46)
[2022-11-15 14:41] VITALS: BP 132/83; PULSE 112; RESP 12; TEMP 36.9; O2SAT 96
--- NOTE | 2022-11-15 15:45 | MHC.RECOVRN ---
Spoke with Anahi Dow, [facility] senior architectural designer, pts last methadone dose was 11/11, 40 mg, Eric Lopez. Pt initiated care with the [facility] 08/15 and was consistent in care for approx 6 weeks, had been taking 65 mg methadone. Pt then became disengaged, missed doses, was subsequently dropped from 65 to 55 to 40 mg methadone. On 10/18, pt was admitted to [facility] and administratively discharged on 10/22 for aggressive behavior, posturing, throwing a dresser, and punching a wall. Pt guest dosed in [facility] (unknown facility) from 10/26-11/08. Pt then presented to the [facility] 11/09-11/11. Per [facility] protocol, pt could receive 40 mg methadone today. Pt offered methadone prior to discharge and declined.
== END 2022-11-15 15:55 | disposition home or self-care (01) ==
PROVIDERS: Physician Assistant Medical; Emergency Provider Emergency Medicine
DX: M79.10 Myalgia, unspecified site (principal); F19.10 Other psychoactive substance abuse, uncomplicated; F11.20 Opioid dependence, uncomplicated; Z79.899 Other long term (current) drug therapy
CPT/HCPCS: 36415; 80053; 80143; 80179; 80307; 81003; 82077; 83735; 85025; 93005; 96360; 99285

== ENCOUNTER 2022-11-15 17:52 | Emergency (ER) | payer MEDICAID, OTHER, SELFPAY ==
--- NOTE | ~2022-11-15 | XR_ITS ---
EXAMINATION: XR ANKLE, RIGHT CLINICAL INFORMATION: Pain COMPARISON: None available. TECHNIQUE: AP, lateral, and mortise views of the right ankle. FINDINGS: The bones and soft tissues are normal. No fracture. Alignment is anatomic. Joint spaces are maintained. No joint effusion. XR/XR ankle RT min 3V IMPRESSION: Normal right ankle.
[2022-11-15 17:55] VITALS: BP 144/86; PULSE 102; O2SAT 97
[2022-11-15 17:58] VITALS: BP 124/68; PULSE 113; RESP 16; TEMP 37; O2SAT 96; BMI 22.8
--- NOTE | 2022-11-15 18:15 | ED_ITS ---
HPI - Alcohol General Chief Complaint: ETOH/Substance Use Stated Complaint: etoh Time Seen by Provider: 11/15/22 18:12 Source: patient and EMS Mode of arrival: EMS Limitations: no limitations History of Present Illness HPI narrative: 20-year-old male seen yesterday attempted and is complaining of right ankle pain patient denies SI or HI was seen and sent home just few hours ago. Patient comes back after running away from police complaint: medical clearance for detox facility Related Data Home Medications Medication Instructions Recorded Confirmed diphenhydramine HCl 50 mg capsule 50 mg PO BEDTIME PRN insomnia 11/15/22 11/15/22 (Banophen) divalproex 500 mg tablet,delayed 500 mg PO BID anemia 11/15/22 11/15/22 release olanzapine 15 mg tablet 15 mg PO BEDTIME 11/15/22 11/15/22 olanzapine 5 mg tablet 5 mg PO DAILY 11/15/22 11/15/22 Allergies Allergy/AdvReac Type Severity Reaction Status Date / Time No Known Allergies Allergy Verified 08/04/22 23:02 Review of Systems Review of Systems: Review of systems: General: Patient denies any fever chills recent illness or falls Musculoskeletal: Denies back pain or body aches or other injuries HEENT: denies headache, runny nose, ear pain Respiratory: denies shortness of breath, cough Cardiovascular: no chest pain or palpitations : denies dysuria, frequency Abdomen: no nausea vomiting denies abdominal pain Extremities: no swelling, no pain Skin: no diaphoresis Yes all other systems are reviewed and are negative PMFSH Social History Social History Alcohol intake: current Alcohol intake frequency: a few times a week 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, 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/Cocaine, Heroin and Marijuana Physical Exam ED Vital Signs: Vital Signs - 24 hr 11/15/22 17:58 Temperature 98.6 F Pulse Rate 113 H Respiratory Rate 16 Blood Pressure 124/68 Pulse Oximetry 96 Oxygen Delivery Method Room Air BMI result Body Mass Index 22.8 General: Well-appearing well-nourished in no signs of distress HEENT: Normocephalic atraumatic Neck: No signs of JVD, no masses no tenderness or lymphadenopathy Cardiovascular: Regular rate and rhythm Respiratory: Clear to auscultation bilaterally Abdomen: Soft nontender no masses Extremities: Normal pedal pulses no signs of edema Skin: Dry warm no rashes Back: No tenderness full ROM Medical Decision Making Differential Diagnosis Differential Diagnoses: The differential diagnosis associated with the presentation includes heroin withdrawal. He had his methadone verified and refused it earlier today now wants it and pudding. I have no reason for any workup. Admission/Observation Consideration of admission/observation: Escalation of care including admission/observation considered Independent Interpretation I performed an independent interpretation of an: Plain X-Ray Radiology Impression Discussion of test interpretation with radiology: I have reviewed the radiologist's reading. External Record Review External record reviewed: Inpatient record and Outside ED record Social Determinants Patient?s care significantly limited by Social Determinants of Health including: Inadequate housing, Low income, Alcoholism and drug addiction in family, Problems related to primary support group, Unemployment and Other Social Determinant of Health Discharge Plan Discharge Clinical Impression: Substance use Patient Disposition: Home, Self-Care Instructions: Polysubstance Abuse (ED) Additional Instructions: Please call to follow up and go to the methadone center Prescriptions: No Action diphenhydramine HCl [Banophen] 50 mg capsule 50 mg PO BEDTIME PRN (Reason: insomnia) olanzapine 5 mg tablet 5 mg PO DAILY divalproex 500 mg tablet,delayed release (DR/EC) 500 mg PO BID olanzapine 15 mg tablet 15 mg PO BEDTIME
--- NOTE | 2022-11-15 18:15 | PC.NURSE ---
Pt discharged from pod at 1600 today, pt requesting methadone, was offered prior to discharge and declined. Resting comfortably in stretcher
[2022-11-15] MEDS: methADONE HCl 20 MG/2 ML ORAL.CONC 40 MG PO (18:43)
--- NOTE | 2022-11-15 19:08 | PC.NURSE ---
assumed care of patient at 1900 - pt ambulating around in room, walking out to doctors station saying i need an iv MD tells patient there is no need for iv at this time. pt alert, in no apparent distress. pt is not SI/HI, is medically cleared and can be discharged whenever he feels ready unless he is interested in detox bed search. pt in room saying he has no where to go and does not have a home. pt provided with sandwich and juice. will CTM.
--- NOTE | 2022-11-15 19:33 | MHC.RECOVSUP ---
? Reason for consult Recovery support o Current location: ed12 o Identified substance use concern: Heroin - Seeking ATS (detox) - Support ? Intervention: o ATS bed search [id number] process o Community resources provided o Harm reduction discussion ? Plan: o Patient to follow up with [facility] after discharge ? Additional information: Patient seeking ATS... [facility] rossi could not take him due psych issue, and patient can not go to [facility] detox for 30 days..
[2022-11-15 19:45] VITALS: BP 108/73; PULSE 77; RESP 16; TEMP 36.6; O2SAT 97
--- NOTE | 2022-11-15 20:30 | PC.NURSE ---
pt ready for discharge as there are no detox beds available this evening. pt encouraged to call in AM to follow up with detox bed placement. pt not accepting of d/c plans, states he is homeless and has no where to go and if he leaves he is just going to jump off a bridge and kill himself. provider aware. pt being changed over by security and brought into pod for CARE team sergio.
[2022-11-15 21:09] LABS: Amphetamine Screen Urine Not Detected (Not Detect); Barbiturates, Urine Not Detected (Not Detect); Benzodiazepines Screen Urine Not Detected (Not Detect); Cannabinoid Screen Urine POSITIVE (Not Detect); Cocaine Screen Urine Not Detected (Not Detect); Fentanyl, urine POSITIVE (Not Detect); Opiate Screen Urine Not Detected (Not Detect); Phencyclidine Screen Urine POSITIVE (Not Detect)
[2022-11-15 21:11] LABS: COVID-19 Test Negative (Negative); IDNOW Serial# 08D9AD1C
--- NOTE | 2022-11-15 21:39 | MHC.EDTECH ---
PATIENT WAS ASKED AND LABS ATTEMPTED BUT PATIENT PULLED BACK AND REFUSED TO HAVE BLOOD DRAWN. THIS STAFF WILL ATTEMPT AGAIN LATER OR ASK SOMEONE FROM THE ED TO ATTEMPT TO DRAW LABS.
[2022-11-16 01:08] LABS: Basophils Absolute Auto 0.1 X10*3/uL (0.0-0.2); Basophils Percent Auto 0.6 % (0-2); Eosinophils Absolute Auto 0.3 X10*3/uL (0.0-0.4); Eosinophils Percent Auto 3.8 % (0-4); Hematocrit 41.3 % (42.0-52.0); Hemoglobin 13.9 g/dl (14.0-18.0); Imm Gran Abs Auto 0.03 X10*3/uL (0.00-0.03); Imm Gran Pct Auto 0.3 % (0.0-0.4); Lymphocytes Percent Auto 33.6 % (20-40); MANUAL DIFF FLAG NO; Mean Corpuscular HGB Conc 33.7 g/dl (31.0-36.0); Mean Corpuscular Hemoglobin 29.6 pg (27.0-33.0); Mean Corpuscular Volume 87.9 fL (80.0-98.0); Monocytes Absolute Auto 0.9 X10*3/uL (0.1-1.2); Monocytes Percent Auto 9.7 % (2-11); Neutrophils Absolute Auto 4.7 x10*3/uL (2.0-8.3); Platelet Count 213 X10*3/uL (160-400); Red Cell Distribution Width 12.9 % (11.0-16.0)
[2022-11-16 01:22] LABS: Valproate 50.4 mcg/mL (50.0-100.0)
[2022-11-16 01:25] LABS: Alanine Aminotransferase 23 U/L (0-40); Albumin Level 3.8 g/dL (3.5-5.0); Alkaline Phosphatase 58 U/L (39-117); Anion Gap 13 (12-20); Aspartate Amino Transferase 15 U/L (5-37); Bilirubin Total 0.2 mg/dL (0.0-1.0); Blood Urea Nitrogen 13 mg/dL (9-16); Carbon Dioxide 26 mmol/L (22-29); Chloride 106 mmol/L (96-108); Creatinine Clr Calc Pharmacy 134.3; Estimated Glomerular Filt Rate > 60; Ethanol < 10 mg/dL; Glucose Random 110 mg/dL (60-115); Potassium 3.7 mmol/L (3.3-5.1); Sodium 141 mmol/L (135-145)
--- NOTE | 2022-11-16 04:40 | PC.NURSE ---
Patient slept through the night, no distress observed/reported, behavior non concerning, med rec completed/pending provider's approval, VSS, care consult ordered for suicidality/pending evaluation, will continue to monitor.,
[2022-11-16 06:20] VITALS: BP 103/55; PULSE 70; RESP 19; TEMP 36.4; O2SAT 100
[2022-11-16 09:51] VITALS: BP 120/65; PULSE 94; RESP 16; TEMP 36.8; O2SAT 99
[2022-11-16] MEDS: Nicotine Polacrilex 2 MG GUM 4 MG BUCCAL ×2 (11:46→15:44)
--- NOTE | 2022-11-16 12:44 | PC.NURSE ---
Pt reporting 11/16/22 methadone 40mg causing N/V after dose. Notified .
[2022-11-16] MEDS: methADONE HCl 20 MG/2 ML ORAL.CONC 30 MG PO (14:38)
--- NOTE | 2022-11-16 15:26 | MHC.RECOVSUP ---
Met with pt in [facility] to provide recovery resources and information for respit and shelters. Pt had no other questions or concerns at this time and is ready to dc.
== END 2022-11-16 18:13 | disposition home or self-care (01) ==
PROVIDERS: Emergency Provider Student in an Organized Health Care Education/Training Program
DX: R45.851 Suicidal ideations (principal); F11.19 Opioid abuse with unspecified opioid-induced disorder; M25.571 Pain in right ankle and joints of right foot; Z20.822 Contact with and (suspected) exposure to COVID-19; Z20.828 Contact with and (suspected) exposure to other viral communicable diseases; Z79.899 Other long term (current) drug therapy
CPT/HCPCS: 36415; 73610; 80053; 80164; 80307; 82077; 85025; 87635; 99284; 99285; S9485